=== PATIENT | female | born 1930 | race Caucasian/White ===

== ENCOUNTER 2017-03-22 20:19 | Emergency (ER) | payer MEDICARE, OTHER ==
[~2017-03-22] VITALS: Ht 162.6 cm; Wt 68.0 kg
[~2017-03-22 20:19] MED LIST: ASPI81TA82 PO; AZO-450T PO; COZA50TA PO; DOCU100T9 PO; LACT10SO47 PO; LEVO75TA3 PO; LORA-392 PO; METF500 PO; PERC5TAB12 PO; POLY119S PO; THIO PO; [UNRECOGNIZED DRUG - CODE] PO
[2017-03-22 20:23] VITALS: BP 181/90; PULSE 97; RESP 20
[2017-03-22 20:31] VITALS: BP 158/79; PULSE 98; RESP 20; O2SAT 96
[2017-03-22] MEDS ORDERED: SODIUM CHLOR 0.9% 1000 ML INJ 1,000 ML IV SCH (20:31)
--- NOTE | 2017-03-22 20:40 | PD ---
HPI Chief Complaint: Abdominal Pain Time Seen by Provider: 20:25 Travel History International Travel<30 days: No Contact w/Intl Traveler<30days: No Traveled to known affect area: No History of Present Illness HPI 86-year-old schizophrenic female presents to the emergency department via [facility] with reports of abdominal pain. Patient is unreliable for history. Her only complaint is of headache. Patient denies abdominal pain, nausea, vomiting , fever, cough, chest pain, or other symptoms. She cannot define her pain level of headache. She has no known drug allergies. PFSH Past Medical History Arthritis: Yes Asthma: No Blood Disorders: No Anxiety: No Depression: No Heart Rhythm Problems: No Cancer: No Cardiac Catheterization: No Cardiovascular Problems: No High Cholesterol: No Congestive Heart Failure: No COPD: Yes Dementia: Yes Diabetes: Yes Diminished Hearing: No Gastrointestinal Disorders: Yes (HX OF DYSPHAGIA, HX SBO) Genitourinary: No Hepatitis: No Hiatal Hernia: No Hypertension: Yes Musculoskeletal: No Neurologic: No Psychiatric: Yes Reproductive: No Respiratory: Yes Integumentary: Yes Immunizations Current: Yes Schizophrenia: Yes Sleep Apnea: No Thyroid Disease: Yes Ulcer: No PNEUMOCCOCAL Vaccine (Year): 3 ?: Not Menopausal: Yes : 3 Para: 3 Past Surgical History Appendectomy: No Coronary Artery Bypass Graft: No Gynecologic Surgery: Yes (hysterectomy) Hysterectomy: Yes Other Surgery: No Social History Alcohol Use: No Tobacco Use: No Substance Use: No Allergies-Medications (Allergen,Severity, Reaction): Coded Allergies: No Known Allergies (Verified , 03/22/17) Reported Meds & Prescriptions Reported Meds & Active Scripts Active Ativan (Lorazepam) 0.5 Mg Tab 0.5 Mg PO TID Reported Trimethoprim 100 Mg Tab 100 Mg PO MOWEFR TAKE 100MG ON FRIDAY, FRIDAY AND FRIDAY Azo-Cranberry (Cranberry (Vaccinium Macrocarp) 450 Mg Tab 450 Mg PO BID Glucophage 500 mg (Metformin HCl) 500 Mg Tab 500 Mg PO BID TAKE WITH MEALS Docusate Sodium 100 Mg Tab 100 Mg PO BID Aspir-81 (Aspirin) 81 Mg Tab 81 Mg PO DAILY Enulose (Lactulose) [place] 15 Ml PO DAILY Percocet 5-325 mg (Oxycodone/Acetaminophen) Oxycodone 5/325 Acetaminophen Tab 1 Tab PO BID PRN Mellaril 100 Mg Tab (Thioridazine Hcl) 100 Mg Tab 200 Mg PO HS Levothyroxine 75 mcg (Levothyroxine Sodium) 75 Mcg Tab 75 Mcg PO DAILY Miralax 119 Gm Bottle (Polyethylene Glycol) 119 Gm Powd 17 Gm PO DAILY 17 GRAMS (1 CAPFUL) IN 8 OUNCES OF WATER OR JUICE Mellaril 100 Mg Tab (Thioridazine Hcl) 100 Mg Tab 100 Mg PO DAILY Cozaar (Losartan Potassium) 50 Mg Tab 50 Mg PO DAILY Review of Systems ROS Limitations: Clinical Condition, Poor Historian Except as stated in HPI: all other systems reviewed are Neg General / Constitutional: No: Fever Eyes: No: Visual changes HENT: No: Headaches Cardiovascular: No: Chest Pain or Discomfort Respiratory: No: Shortness of Breath Gastrointestinal: No: Abdominal Pain Genitourinary: No: Dysuria Musculoskeletal: No: Pain Skin: No Rash Neurologic: No: Weakness Psychiatric: No: Depression Endocrine: No: Polydipsia Hematologic/Lymphatic: No: Easy Bruising Physical Exam Exam Limitations: Clinical Condition, Poor Historian Narrative GENERAL: Patient appears in no acute distress. SKIN: Warm and dry. Normal color. Normal turgor. No signs of trauma. Nontender. HEAD: Atraumatic. Normocephalic. EYES: Pupils equal and round. No scleral icterus. No injection or drainage. ENT: No nasal bleeding or discharge. Mucous membranes pink and moist. Patient has upper and lower dentures. Pharynx is clear. Airway is patent. NECK: Trachea midline. Supple and nontender. CARDIOVASCULAR: Regular rate and rhythm. RESPIRATORY: No accessory muscle use. Clear to auscultation. Breath sounds equal bilaterally. GASTROINTESTINAL: Abdomen soft, non-tender, nondistended. Sounds are present in all quadrants. No CVA tenderness. Hepatic and splenic margins not palpable. MUSCULOSKELETAL: Extremities without clubbing, cyanosis, or edema. No obvious deformities. NEUROLOGICAL: Awake and alert. No obvious cranial nerve deficits. Motor grossly within normal limits. Five out of 5 muscle strength in the arms and legs. Normal speech. PSYCHIATRIC: Appropriate mood and affect; insight and judgment normal. Data Data Last Documented VS Vital Signs Date Time Temp Pulse Resp B/P (MAP) Pulse Ox O2 Delivery O2 Flow Rate FiO2 03/22/17 21:12 16 98 Room Air 03/22/17 20:31 98 Orders Orders Complete Blood Count With Diff (03/22/17 20:31) Comprehensive Metabolic Panel (03/22/17 20:31) Lipase (03/22/17 20:31) Prothrombin Time / Inr (Pt) (03/22/17:31) Act Partial Throm Time (Ptt) (03/22/17 20:31) Urinalysis - C+S If Indicated (03/22/17 20:31) Abdomen, Flat & Upright (03/22/17 ) Iv Access Insert/Monitor (03/22/17 20:31) Ecg Monitoring (03/22/17 20:31) Oximetry (03/22/17 20:31) Ondansetron Inj (Zofran Inj) (03/22/17 20:45) Sodium Chlor 0.9% 1000 Ml Inj (Ns 1000 M (03/22/17 20:31) Sodium Chloride 0.9% Flush (Ns Flush) (03/22/17 20:45) Electrocardiogram (03/22/17 20:31) Cath For Specimen (03/22/17:) Acetaminophen (Tylenol) (03/22/17 20:45) Labs Laboratory Tests Test 03/22/17 20:43 03/22/17 22:00 White Blood Count 11.1 TH/MM3 Red Blood Count 4.17 MIL/MM3 Hemoglobin 12.8 GM/DL Hematocrit 37.9 % Mean Corpuscular Volume 91.0 FL Mean Corpuscular Hemoglobin 30.7 PG Mean Corpuscular Hemoglobin Concent 33.8 % Red Cell Distribution Width 14.1 % Platelet Count 230 TH/MM3 Mean Platelet Volume 8.1 FL Neutrophils (%) (Auto) 66.1 % Lymphocytes (%) (Auto) 18.4 % Monocytes (%) (Auto) 14.7 % Eosinophils (%) (Auto) 0.4 % Basophils (%) (Auto) 0.4 % Neutrophils # (Auto) 7.3 TH/MM3 Lymphocytes # (Auto) 2.0 TH/MM3 Monocytes # (Auto) 1.6 TH/MM3 Eosinophils # (Auto) 0.0 TH/MM3 Basophils # (Auto) 0.0 TH/MM3 CBC Comment DIFF FINAL Differential Comment Prothrombin Time 11.4 SEC Prothromb Time International Ratio 1.0 RATIO Activated Partial Thromboplast Time 22.6 SEC Blood Urea Nitrogen 30 MG/DL Creatinine 0.80 MG/DL Random Glucose 184 MG/DL Total Protein 7.2 GM/DL Albumin 3.7 GM/DL Calcium Level 8.7 MG/DL Alkaline Phosphatase 82 U/L Aspartate Amino Transf (AST/SGOT) 20 U/L Alanine Aminotransferase (ALT/SGPT) 29 U/L Total Bilirubin 0.2 MG/DL Sodium Level 132 MEQ/L Potassium Level 4.1 MEQ/L Chloride Level 102 MEQ/L Carbon Dioxide Level 21.1 MEQ/L Anion Gap 9 MEQ/L Estimat Glomerular Filtration Rate 68 ML/MIN Lipase 216 U/L Urine Color YELLOW Urine Turbidity CLEAR Urine pH 6.0 Urine Specific [place] 1.017 Urine Protein TRACE mg/dL Urine Glucose (UA) TRACE mg/dL Urine Ketones 40 mg/dL Urine Occult Blood TRACE Urine Nitrite NEG Urine Bilirubin NEG Urine Urobilinogen LESS THAN 2.0 MG/DL Urine Leukocyte Esterase NEG Urine RBC 1 /hpf Urine WBC 4 /hpf Urine Squamous Epithelial Cells 1 /hpf Urine Hyaline Casts 3 /lpf Urine Mucus FEW /lpf Microscopic Urinalysis Comment CULT NOT INDICATED MDM Medical Decision Making Medical Screen Exam Complete: Yes Emergency Medical Condition: Yes Medical Record Reviewed: Yes Differential Diagnosis Schizophrenia. Headache. Abdominal pain. Infection. Constipation. Narrative Course Patient is medically stable at time of exam. Labs ordered including CBC, CMP, lipase, PT PTT and INR, and urinalysis. EKG is ordered. Abdominal flat and upright x-ray is ordered. Patient is given Tylenol 650 mg by mouth. IV access is obtained and patient is given 4 mg Zofran IV as well as 1000 mg normal saline bolus. CBC shows slight leukocytosis of 11.1 otherwise no significant findings. Chemistry shows sodium 132, BUN of 30, normal creatinine of 0.8, GFR 68, random glucose 184. Otherwise no significant findings. Lipase 216 Coags are normal. Urinalysis shows no signs of infection. Abdominal x-rays show no acute process per radiologist. She is felt to be medically stable to return to the nursing facility. Patient should follow with the primary care physician at that facility for further evaluation as needed. Diagnosis Primary Impression: Dementia Qualified Codes: F03.91 - Unspecified dementia with behavioral disturbance Additional Impression: Schizophrenia Qualified Codes: F20.9 - Schizophrenia, unspecified Referrals: Primary Care Physician Patient Instructions: General Instructions Additional Instructions: CBC shows slight leukocytosis of 11.1 otherwise no significant findings. Chemistry shows sodium 132, BUN of 30, normal creatinine of 0.8, GFR 68, random glucose 184. Otherwise no significant findings. Lipase 216 Coags are normal. Urinalysis shows no signs of infection. Abdominal x-rays show no acute process per radiologist. She is felt to be medically stable to return to the nursing facility. Patient should follow with the primary care physician at that facility for further evaluation as needed. Med/Other Pt SpecificInfo: No Change to Meds Disposition: 01 DISCHARGE HOME Condition: Stable Tommy Cortez Mar 22, 2017 20:40
[2017-03-22] MEDS ORDERED: ONDANSETRON HCL 4 MG/2 ML VIAL IVP ONE (20:45)
[2017-03-22] MEDS ORDERED: ACETAMINOPHEN 325 MG TAB PO ONE (20:45)
[2017-03-22] MEDS ORDERED: SODIUM CHLORIDE 0.9% FLUSH 10 ML FLUSH IV FLUSH PRN (20:45)
[2017-03-22 21:02] LABS: AUTOMATED NEUTROPHIL # 7.3 TH/MM3 (1.8-7.7); BASOPHIL % 0.4 % (0.0-2.0); EOSINOPHIL % 0.4 % (0.0-4.0); HEMATOCRIT 37.9 % (35.0-46.0); HEMOGLOBIN 12.8 GM/DL (11.6-15.3); LYMPH % 18.4 % (9.0-44.0); MEAN CORPUSCULAR HEMOGLOBIN 30.7 PG (27.0-34.0); MEAN CORPUSCULAR HGB CONC 33.8 % (32.0-36.0); MEAN PLATELET VOLUME 8.1 FL (7.0-11.0); MONO % 14.7 % (0.0-8.0); MONOCYTE # 1.6 TH/MM3 (0-0.9); NEUT % 66.1 % (16.0-70.0); PLATELET COUNT 230 TH/MM3 (150-450); RED BLOOD COUNT 4.17 MIL/MM3 (4.00-5.30); RED CELL DISTRIBUTION WIDTH 14.1 % (11.6-17.2); WHITE BLOOD COUNT 11.1 TH/MM3 (4.0-11.0)
[2017-03-22 21:12] VITALS: RESP 16; O2SAT 98
[2017-03-22 21:13] LABS: PROTHROMBIN TIME - PATIENT 11.4 SEC (9.8-11.6)
[2017-03-22 21:22] LABS: ALT (GPT) 29 U/L (10-53)
[2017-03-22 21:24] LABS: ALKALINE PHOSPHATASE 82 U/L (45-117); TOTAL BILIRUBIN ADULT 0.2 MG/DL (0.2-1.0); TOTAL PROTEIN 7.2 GM/DL (6.4-8.2)
[2017-03-22 21:30] LABS: ALBUMIN 3.7 GM/DL (3.4-5.0); AST (GOT) 20 U/L (15-37); BICARBONATE 21.1 MEQ/L (21.0-32.0); BLOOD UREA NITROGEN 30 MG/DL (7-18); CALCIUM 8.7 MG/DL (8.5-10.1); CHLORIDE 102 MEQ/L (98-107); GLOMERULAR FILTRATION RATE 68 ML/MIN (>89); GLUCOSE,RANDOM 184 MG/DL (74-106); LIPASE 216 U/L (73-393); SODIUM (NA) 132 MEQ/L (136-145)
--- NOTE | 2017-03-22 21:45 | RADRPT ---
EXAM DATE/TIME: 03/22/2017 21:28 [facility] COMPARISON: No previous studies available for comparison. INDICATIONS : Abdomen pain. MEDICAL HISTORY : Dementia. Chronic obstructive pulmonary disease. Hypertension. Thyroid diseaseArthritis. Diabetes. Sc hizophrenia. Dysphagia. Shortness of breath.. SURGICAL HISTORY : Hysterectomy. ENCOUNTER: Initial ACUITY: 2 months PAIN SCORE: Non-responsive. LOCATION: abdomen, inferior FINDINGS: Supine and upright views of the abdomen were performed. The abdominal bowel gas pattern is normal. A dvanced degenerative change of the spine. Vascular calcifications pelvis. CONCLUSION: 1. No acute findings. Advanced degenerative change of the spine. Hiram Romero MD on March 22, 2017 at 21:41 Board Certified Radiologist. This report was verified electronically.
[2017-03-22 22:37] LABS: BILIRUBIN, URINE NEG (NEG); BLOOD, URINE TRACE (NEG); GLUCOSE,URINE TRACE mg/dL (NEG); HYALINE CAST, URINE 3 /lpf (RARE); KETONE, URINE 40 mg/dL (NEG); MUCUS URINE FEW /lpf (OCC); NITRITE,URINE NEG (NEG); SQUAMOUS EPITHELIAL CELL URINE 1 /hpf (0-5); URINE COLOR YELLOW (YELLW/STRAW); URINE LEUKOCYTE ESTERASE NEG (NEG)
[2017-03-23] MEDS ORDERED: LORazepam 1 MG TAB PO ONE (01:00)
--- NOTE | 2017-03-23 13:27 | EKG ---
Date Performed: 03/22/2017 Time Performed: 21:03:36 PTAGE: 86 years EKG: Sinus rhythm WITH OCCASIONAL SUPRAVENTRICULAR PREMATURE COMPLEXES NONSPECIFIC ST & T-WAVE ABNORMALITY BORDERLINE ECG PREVIOUS TRACING : 04/10/2015 20.00 Compared to prior tracing no significant change DOCTOR: Gil Benson Interpretating Date/Time 03/23/2017 13:26:58
== END 2017-03-23 09:00 | disposition home or self-care (01) ==
LOC: NEPE 20:19 → NEPD 03-23 09:00
DX: F03.91 Unspecified dementia, unspecified severity, with behavioral disturbance (principal); F20.9 Schizophrenia, unspecified; D72.829 Elevated white blood cell count, unspecified; R51 Headache; R94.31 Abnormal electrocardiogram [ECG] [EKG]; E11.9 Type 2 diabetes mellitus without complications; I10 Essential (primary) hypertension; E07.9 Disorder of thyroid, unspecified; Z79.84 Long term (current) use of oral hypoglycemic drugs; Z86.59 Personal history of other mental and behavioral disorders; Z87.39 Personal history of other diseases of the musculoskeletal system and connective tissue; Z87.09 Personal history of other diseases of the respiratory system; Z87.19 Personal history of other diseases of the digestive system; Z87.2 Personal history of diseases of the skin and subcutaneous tissue
CPT/HCPCS: 74020; 80053; 81001; 83690; 85025; 85610; 85730; 93005; 96374; 99285; J2405; J7030